=== PATIENT | male | born 1950 | race Caucasian/White ===

== ENCOUNTER 2023-12-29 05:36 | Inpatient (IN) | payer OTHER ==
[2023-12-29 06:12] LABS: #Eosinphils 0.2 10x3/uL (0.0-0.5); #Monocytes 1.6 10x3/uL (0.0-1.1); %Basophils 0.3 % (0.0-2.0); %Eosinophils 1.9 % (0.0-6.0); %Lymphocytes 13.2 % (18.0-47.0); %Monocytes 14.2 % (0.0-10.0); %Neutrophils 69.8 % (40.0-75.0); Hematocrit 40.3 % (38.8-50.0); Hemoglobin 14.1 g/dL (13.5-17.5); Mean Corpuscular Hemoglobin 30.4 pg (27.0-33.0); Mean Corpuscular Volume 86.9 fl (81.2-95.1); Mean Platelet Volume 11.4 fl (7.4-10.4); Platelet Count 237 10x3/uL (150-450); RBC Distribution Width 12.8 % (11.5-14.5); Red Blood Cell (RBC) Count 4.64 10x6/uL (4.32-5.72); White Blood Cell (WBC) Count 11.4 10x3/uL (3.5-10.5)
[2023-12-29 06:29] LABS: ALT (SGPT) 17 U/L (8-55); AST (SGOT) 24 U/L (5-34); Alkaline Phosphatase 68 U/L (40-110); Anion Gap 14 mmol/L (10-20); BUN (Urea Nitrogen) 7 mg/dL (8.4-25.7); Bilirubin, Total 0.8 mg/dL (0.2-1.2); Calc. Creatinine Clearance 0 mL/min (70-130); Calcium 8.4 mg/dL (7.8-10.44); Carbon Dioxide 22 mmol/L (23-31); Chloride 92 mmol/L (98-107); Estimated GFR 99; Globulin 2.4 g/dL (2.4-3.5); Glucose 91 mg/dL (83-110); Magnesium 1.8 mg/dL (1.6-2.6); Potassium 3.5 mmol/L (3.5-5.1); Protein, Total 6.4 g/dL (5.8-8.1); Sodium 124 mmol/L (136-145)
[2023-12-29 06:36] LABS: Influenza A by NAA Not Detected (NotDetected); Influenza B by NAA Not Detected (NotDetected); SARS-CoV-2 NAA Rapid Test Not Detected (NotDetected)
[2023-12-29 06:40] LABS: Troponin I Less than 0.010 ng/mL (< 0.028)
[2023-12-29] MEDS ORDERED: Azithromycin 500 MG VIAL ONE (08:18)
[2023-12-29] MEDS ORDERED: cefTRIAXone (ROCEPHIN) 2 GM VIAL ONE (08:18)
[2023-12-29] MEDS ORDERED: Acetaminophen 325 MG TAB PO PRN (09:33)
[2023-12-29] MEDS ORDERED: Ondansetron ODT 4 MG TAB PO PRN (09:33)
[2023-12-29] MEDS ORDERED: Ondansetron PF 4 MG/2 ML Vial IVP PRN (09:33)
[2023-12-29 10:26] LABS: Troponin I 0.011 ng/mL (< 0.028)
[2023-12-29] MEDS ORDERED: GenTeal Tears Severe Dry Eye GEL 10 GM EA EYE PRN (12:09)
[2023-12-29 12:59] VITALS: BMI 26.6
[2023-12-29 13:27] LABS: Lactic Acid 1.3 mmol/L (0.5-2.2)
[2023-12-29 13:36] LABS: Troponin I Less than 0.010 ng/mL (< 0.028)
[2023-12-29] MEDS: Enoxaparin 40 MG (0.4 mL) SYRINGE SC SCH (13:41)
[2023-12-29] MEDS: Sodium Chloride 0.9% 1,000 ML IV SCH (13:41)
[2023-12-29 15:41] LABS: Anion Gap 13 mmol/L (10-20); BUN (Urea Nitrogen) 5 mg/dL (8.4-25.7); Calc. Creatinine Clearance 105 mL/min (70-130); Calcium 8.3 mg/dL (7.8-10.44); Carbon Dioxide 22 mmol/L (23-31); Chloride 94 mmol/L (98-107); Estimated GFR 100; Glucose 96 mg/dL (83-110); Potassium 3.3 mmol/L (3.5-5.1); Sodium 126 mmol/L (136-145)
[2023-12-29 19:26] LABS: Anion Gap 14 mmol/L (10-20); BUN (Urea Nitrogen) 5 mg/dL (8.4-25.7); Calc. Creatinine Clearance 109 mL/min (70-130); Carbon Dioxide 23 mmol/L (23-31); Chloride 93 mmol/L (98-107); Estimated GFR 101; Glucose 97 mg/dL (83-110); Potassium 3.5 mmol/L (3.5-5.1); Sodium 126 mmol/L (136-145)
[2023-12-29] MEDS: Carvedilol 6.25 MG TAB PO SCH (21:00)
[2023-12-30 05:41] LABS: #Eosinphils 0.1 10x3/uL (0.0-0.5); #Monocytes 1.4 10x3/uL (0.0-1.1); #Neutrophils 7.8 10x3/uL (1.5-8.4); %Basophils 0.3 % (0.0-2.0); %Eosinophils 1.1 % (0.0-6.0); %Lymphocytes 12.5 % (18.0-47.0); %Monocytes 13.1 % (0.0-10.0); %Neutrophils 72.5 % (40.0-75.0); Hematocrit 39.8 % (38.8-50.0); Hemoglobin 14.6 g/dL (13.5-17.5); Mean Corpuscular HGB CONC 36.7 g/dL (32.0-36.0); Mean Corpuscular Hemoglobin 31.7 pg (27.0-33.0); Mean Corpuscular Volume 86.3 fl (81.2-95.1); Platelet Count 215 10x3/uL (150-450); RBC Distribution Width 12.9 % (11.5-14.5); Red Blood Cell (RBC) Count 4.61 10x6/uL (4.32-5.72); White Blood Cell (WBC) Count 10.8 10x3/uL (3.5-10.5)
[2023-12-30 05:55] LABS: Anion Gap 15 mmol/L (10-20); BUN (Urea Nitrogen) 6 mg/dL (8.4-25.7); Calc. Creatinine Clearance 114 mL/min (70-130); Calcium 7.9 mg/dL (7.8-10.44); Carbon Dioxide 18 mmol/L (23-31); Cardiac Risk 2.5 (Less than 4.5); Chloride 95 mmol/L (98-107); Cholesterol 68 mg/dl (< 200 Desired); Estimated GFR 103; Glucose 96 mg/dL (83-110); HDL Cholesterol 27 mg/dL (>60 Neg Risk); LDL Cholesterol, Calculated 32 mg/dL; Potassium 3.1 mmol/L (3.5-5.1); Sodium 125 mmol/L (136-145); Triglycerides 46 mg/dL (Less than 150)
[2023-12-30] MEDS: Calcium Carbonate 600 MG + Vit D TAB PO SCH (09:10)
[2023-12-30] MEDS: Aspirin Chewable 81 MG TAB PO SCH (09:10)
[2023-12-30] MEDS: Atorvastatin Calcium 40 MG TAB PO SCH (09:10)
[2023-12-30] MEDS: Potassium Chloride 20 MEQ TAB PO SCH (09:10)
[2023-12-30] MEDS: Sodium Chloride 0.9% 1,000 ML IV SCH (09:11)
[2023-12-30] MEDS: cefTRIAXone\\ROCEPHIN 1 GM in Sodium Chloride 0.9% 100 ML IVPB SCH (09:11)
[2023-12-30] MEDS: Docusate 100 MG CAP PO SCH (09:11)
[2023-12-30] MEDS ORDERED: Iopamidol 300 61% 100 ML VIAL FS ONE (10:00)
[2023-12-30] MEDS: Azithromycin 500 MG in Sodium Chloride 0.9% 250 ML 250 ML IVPB SCH (11:38)
[2023-12-30] MEDS ORDERED: Ipratropium/Albuterol 3 ML NEB NEB SCH (18:30)
[2023-12-30] MEDS: predniSONE 20 MG TAB PO SCH (19:00)
[2023-12-30] MEDS: Ipratropium/Albuterol 3 ML NEB NEB SCH (20:20)
[2023-12-31 05:32] LABS: Anion Gap 13 mmol/L (10-20); BUN (Urea Nitrogen) 9 mg/dL (8.4-25.7); Calc. Creatinine Clearance 114 mL/min (70-130); Calcium 7.9 mg/dL (7.8-10.44); Carbon Dioxide 17 mmol/L (23-31); Chloride 97 mmol/L (98-107); Estimated GFR 103; Glucose 111 mg/dL (83-110); Potassium 4.1 mmol/L (3.5-5.1); Sodium 123 mmol/L (136-145)
[2023-12-31 05:37] LABS: #Monocytes 0.4 10x3/uL (0.0-1.1); #Neutrophils 8.8 10x3/uL (1.5-8.4); %Basophils 0.2 % (0.0-2.0); %Lymphocytes 7.1 % (18.0-47.0); %Monocytes 3.9 % (0.0-10.0); %Neutrophils 88.3 % (40.0-75.0); Hematocrit 41.1 % (38.8-50.0); Hemoglobin 14.4 g/dL (13.5-17.5); Mean Corpuscular Hemoglobin 31.2 pg (27.0-33.0); Mean Corpuscular Volume 89.2 fl (81.2-95.1); Mean Platelet Volume 11.9 fl (7.4-10.4); Platelet Count 210 10x3/uL (150-450); RBC Distribution Width 12.9 % (11.5-14.5); Red Blood Cell (RBC) Count 4.61 10x6/uL (4.32-5.72)
[2023-12-31] MEDS: Sodium Chloride 0.9% 1,000 ML IV SCH (08:14)
[2023-12-31] MEDS: predniSONE 20 MG TAB PO SCH (08:17)
[2024-01-01 07:22] LABS: #Eosinphils 0.1 10x3/uL (0.0-0.5); #Monocytes 1.6 10x3/uL (0.0-1.1); #Neutrophils 10.8 10x3/uL (1.5-8.4); %Basophils 0.2 % (0.0-2.0); %Eosinophils 0.4 % (0.0-6.0); %Lymphocytes 11.9 % (18.0-47.0); %Monocytes 10.9 % (0.0-10.0); %Neutrophils 75.9 % (40.0-75.0); Hematocrit 39.8 % (38.8-50.0); Hemoglobin 13.9 g/dL (13.5-17.5); Mean Corpuscular HGB CONC 34.9 g/dL (32.0-36.0); Mean Corpuscular Hemoglobin 30.8 pg (27.0-33.0); Mean Corpuscular Volume 88.1 fl (81.2-95.1); Mean Platelet Volume 11.6 fl (7.4-10.4); Platelet Count 258 10x3/uL (150-450); Red Blood Cell (RBC) Count 4.52 10x6/uL (4.32-5.72); White Blood Cell (WBC) Count 14.3 10x3/uL (3.5-10.5)
[2024-01-01 07:29] LABS: Anion Gap 13 mmol/L (10-20); BUN (Urea Nitrogen) 14 mg/dL (8.4-25.7); Calc. Creatinine Clearance 110 mL/min (70-130); Calcium 8.4 mg/dL (7.8-10.44); Carbon Dioxide 19 mmol/L (23-31); Chloride 96 mmol/L (98-107); Estimated GFR 102; Glucose 105 mg/dL (83-110); Potassium 3.5 mmol/L (3.5-5.1); Sodium 124 mmol/L (136-145)
[2024-01-02 05:40] LABS: #Eosinphils 0.1 10x3/uL (0.0-0.5); #Monocytes 1.7 10x3/uL (0.0-1.1); %Basophils 0.2 % (0.0-2.0); %Eosinophils 0.5 % (0.0-6.0); %Lymphocytes 13.6 % (18.0-47.0); %Monocytes 12.3 % (0.0-10.0); %Neutrophils 72.8 % (40.0-75.0); Hemoglobin 14.3 g/dL (13.5-17.5); Mean Corpuscular HGB CONC 36.7 g/dL (32.0-36.0); Mean Corpuscular Hemoglobin 31.8 pg (27.0-33.0); Mean Corpuscular Volume 86.7 fl (81.2-95.1); Mean Platelet Volume 11.8 fl (7.4-10.4); Platelet Count 272 10x3/uL (150-450); White Blood Cell (WBC) Count 13.7 10x3/uL (3.5-10.5)
[2024-01-02 05:41] LABS: Anion Gap 13 mmol/L (10-20); BUN (Urea Nitrogen) 16 mg/dL (8.4-25.7); Calc. Creatinine Clearance 118 mL/min (70-130); Calcium 8.3 mg/dL (7.8-10.44); Carbon Dioxide 21 mmol/L (23-31); Chloride 94 mmol/L (98-107); Estimated GFR 104; Glucose 107 mg/dL (83-110); Potassium 3.5 mmol/L (3.5-5.1); Sodium 124 mmol/L (136-145)
[2024-01-02] MEDS: Tolvaptan 15 MG TAB PO SCH (11:07)
[2024-01-02 18:12] LABS: Sodium 124 mmol/L (136-145)
[2024-01-03 03:53] LABS: #Monocytes 2.2 10x3/uL (0.0-1.1); #Neutrophils 14.8 10x3/uL (1.5-8.4); %Basophils 0.2 % (0.0-2.0); %Lymphocytes 7.2 % (18.0-47.0); Hematocrit 44.9 % (38.8-50.0); Hemoglobin 15.5 g/dL (13.5-17.5); Mean Corpuscular HGB CONC 34.5 g/dL (32.0-36.0); Mean Corpuscular Hemoglobin 30.3 pg (27.0-33.0); Mean Corpuscular Volume 87.7 fl (81.2-95.1); Mean Platelet Volume 11.6 fl (7.4-10.4); Platelet Count 331 10x3/uL (150-450); RBC Distribution Width 13.1 % (11.5-14.5); Red Blood Cell (RBC) Count 5.12 10x6/uL (4.32-5.72); White Blood Cell (WBC) Count 18.5 10x3/uL (3.5-10.5)
[2024-01-03 04:34] LABS: Anion Gap 12 mmol/L (10-20); BUN (Urea Nitrogen) 13 mg/dL (8.4-25.7); Calc. Creatinine Clearance 97 mL/min (70-130); Calcium 9.6 mg/dL (7.8-10.44); Carbon Dioxide 22 mmol/L (23-31); Chloride 97 mmol/L (98-107); Estimated GFR 98; Glucose 120 mg/dL (83-110); Potassium 4.1 mmol/L (3.5-5.1); Sodium 127 mmol/L (136-145)
[2024-01-03] MEDS ORDERED: Cefepime 2 GM in Sodium Chloride 0.9% 100 ML IVPB SCH (09:00)
[2024-01-03] MEDS: VANCOMYCIN 1.25 GM/250 ML BAG 1.25 GM in Premix 1 BAG IVPB SCH (09:00)
[2024-01-03] MEDS ORDERED: Vancomycin 1 GM in Premix 1 BAG IVPB SCH (09:00)
[2024-01-03] MEDS: Sodium Chloride 0.9% 1,000 ML IV SCH (09:02)
[2024-01-03 14:45] LABS: Anion Gap 10 mmol/L (10-20); BUN (Urea Nitrogen) 14 mg/dL (8.4-25.7); Calc. Creatinine Clearance 92 mL/min (70-130); Calcium 9.3 mg/dL (7.8-10.44); Carbon Dioxide 25 mmol/L (23-31); Chloride 98 mmol/L (98-107); Estimated GFR 96; Glucose 148 mg/dL (83-110); Potassium 4.4 mmol/L (3.5-5.1); Sodium 129 mmol/L (136-145)
[2024-01-03] MEDS ORDERED: Vancomycin HCl 750 MG in Sodium Chloride 0.9% 250 ML 250 ML IVPB SCH (21:00)
[2024-01-04] MEDS: methylPREDNISolone Sod Succ/PF 125 MG/2 ML VIAL IVP SCH (01:23)
[2024-01-04] MEDS: Enoxaparin 40 MG (0.4 mL) SYRINGE SC SCH ×2 (01:24→21:15)
[2024-01-04] MEDS: guaiFENesin ER 600 MG TAB PO SCH ×2 (01:24→08:50)
[2024-01-04 03:52] LABS: #Eosinphils 0.1 10x3/uL (0.0-0.5); #Monocytes 1.6 10x3/uL (0.0-1.1); %Basophils 0.2 % (0.0-2.0); %Eosinophils 0.3 % (0.0-6.0); %Lymphocytes 7.2 % (18.0-47.0); %Monocytes 9.2 % (0.0-10.0); %Neutrophils 81.9 % (40.0-75.0); Hematocrit 42.7 % (38.8-50.0); Hemoglobin 14.7 g/dL (13.5-17.5); Mean Corpuscular HGB CONC 34.4 g/dL (32.0-36.0); Mean Corpuscular Hemoglobin 30.8 pg (27.0-33.0); Mean Corpuscular Volume 89.3 fl (81.2-95.1); Mean Platelet Volume 11.7 fl (7.4-10.4); Platelet Count 222 10x3/uL (150-450); RBC Distribution Width 13.4 % (11.5-14.5); Red Blood Cell (RBC) Count 4.78 10x6/uL (4.32-5.72); White Blood Cell (WBC) Count 17.1 10x3/uL (3.5-10.5)
[2024-01-04 04:14] LABS: Platelet Adequacy Comment Appears Adequate; RBC Morph Comment Within Normal Limits
[2024-01-04 04:17] LABS: Anion Gap 12 mmol/L (10-20); BUN (Urea Nitrogen) 15 mg/dL (8.4-25.7); Calc. Creatinine Clearance 98 mL/min (70-130); Calcium 8.7 mg/dL (7.8-10.44); Carbon Dioxide 21 mmol/L (23-31); Chloride 98 mmol/L (98-107); Estimated GFR 98; Glucose 106 mg/dL (83-110); Potassium 4.2 mmol/L (3.5-5.1); Sodium 127 mmol/L (136-145)
[2024-01-04] MEDS: predniSONE 20 MG TAB PO SCH (08:49)
[2024-01-04] MEDS: cefTRIAXone\\ROCEPHIN 1 GM in Sodium Chloride 0.9% 100 ML IVPB SCH (08:55)
[2024-01-04] MEDS: Mometasone/Formoterol 200/5 60 PUFF INH SCH (09:51)
[2024-01-04] MEDS: Tolvaptan 15 MG TAB PO SCH (14:09)
[2024-01-04 20:20] LABS: Potassium 3.8 mmol/L (3.5-5.1); Sodium 131 mmol/L (136-145)
[2024-01-05 03:55] LABS: #Basophils 0.1 10x3/uL (0.0-0.2); #Monocytes 2.1 10x3/uL (0.0-1.1); #Neutrophils 15.4 10x3/uL (1.5-8.4); %Basophils 0.3 % (0.0-2.0); %Eosinophils 0.1 % (0.0-6.0); %Lymphocytes 9.2 % (18.0-47.0); %Monocytes 10.7 % (0.0-10.0); %Neutrophils 78.5 % (40.0-75.0); Hematocrit 41.8 % (38.8-50.0); Hemoglobin 14.7 g/dL (13.5-17.5); Mean Corpuscular HGB CONC 35.2 g/dL (32.0-36.0); Mean Corpuscular Hemoglobin 31.1 pg (27.0-33.0); Mean Corpuscular Volume 88.4 fl (81.2-95.1); Mean Platelet Volume 11.4 fl (7.4-10.4); Platelet Count 316 10x3/uL (150-450); RBC Distribution Width 13.2 % (11.5-14.5); Red Blood Cell (RBC) Count 4.73 10x6/uL (4.32-5.72); White Blood Cell (WBC) Count 19.6 10x3/uL (3.5-10.5)
[2024-01-05 04:13] LABS: Anion Gap 12 mmol/L (10-20); BUN (Urea Nitrogen) 17 mg/dL (8.4-25.7); Calc. Creatinine Clearance 95 mL/min (70-130); Calcium 8.6 mg/dL (7.8-10.44); Carbon Dioxide 23 mmol/L (23-31); Chloride 100 mmol/L (98-107); Estimated GFR 97; Glucose 104 mg/dL (83-110); Potassium 3.5 mmol/L (3.5-5.1); Sodium 131 mmol/L (136-145)
[2024-01-05] MEDS ORDERED: Benzocaine/Menthol 1 LOZ LOZ PO PRN (23:02)
[2024-01-06] MEDS: Furosemide 40 MG (4 mL) VIAL SLOW IVP SCH (00:53)
[2024-01-06] MEDS: NOREPINEPHRINE 8 MG/250 ML-D5W 250 ML IVPB SCH (03:22)
[2024-01-06 03:38] LABS: Actual Bicarbonate (HCO3a) 27.9 mEq/L (22-28); Analyzer IN Cardio CS ICU; Base Excess (BEa) 0.5 mEq/L (-2.0 to +3.0); CO2 Tension 55.6 mmHg (35.0-45.0); Calcium, Ionized (arterial) 1.17 mmol/L (1.12-1.30); Carboxyhemoglobin (COHb) 0.9 gm% (0.0-3.0); Hematocrit-ABG 46 % (42.0-52.0); Hemoglobin (Hb) 15.7 g/dL (14.0-18.0); O2 Tension (PaO2), arterial 59.3 mmHg (> 70.0); Puncture Site RRA; pH, Arterial 7.318 (7.35-7.45)
[2024-01-06 03:39] LABS: #Basophils 0.1 10x3/uL (0.0-0.2); #Monocytes 1.7 10x3/uL (0.0-1.1); #Neutrophils 19.4 10x3/uL (1.5-8.4); %Basophils 0.3 % (0.0-2.0); %Lymphocytes 3.5 % (18.0-47.0); %Monocytes 7.7 % (0.0-10.0); %Neutrophils 87.1 % (40.0-75.0); Hematocrit 44.1 % (38.8-50.0); Hemoglobin 15.3 g/dL (13.5-17.5); Mean Corpuscular HGB CONC 34.7 g/dL (32.0-36.0); Mean Corpuscular Hemoglobin 31.6 pg (27.0-33.0); Mean Corpuscular Volume 91.1 fl (81.2-95.1); Mean Platelet Volume 11.2 fl (7.4-10.4); Platelet Count 333 10x3/uL (150-450); RBC Distribution Width 13.6 % (11.5-14.5); Red Blood Cell (RBC) Count 4.84 10x6/uL (4.32-5.72); White Blood Cell (WBC) Count 22.3 10x3/uL (3.5-10.5)
[2024-01-06 03:54] LABS: Anion Gap 14 mmol/L (10-20); BUN (Urea Nitrogen) 21 mg/dL (8.4-25.7); Calc. Creatinine Clearance 88 mL/min (70-130); Calcium 8.5 mg/dL (7.8-10.44); Carbon Dioxide 24 mmol/L (23-31); Chloride 100 mmol/L (98-107); Estimated GFR 95; Glucose 151 mg/dL (83-110); Potassium 4.3 mmol/L (3.5-5.1); Sodium 134 mmol/L (136-145)
[2024-01-06] MEDS: NOREPINEPHRINE 8 MG/250 ML-D5W 250 ML ONE (04:02)
[2024-01-06] MEDS ORDERED: Vancomycin 1.5 GM in Sodium Chloride 0.9% 250 ML 300 ML IVPB SCH (09:00)
[2024-01-06] MEDS: Cefepime 2 GM in Sodium Chloride 0.9% 100 ML IVPB SCH (09:07)
[2024-01-06] MEDS: Lactated Ringer's 1,000 ML IV SCH (09:07)
[2024-01-06] MEDS: VANCOMYCIN 1.25 GM/250 ML BAG 1.25 GM in Premix 1 BAG IVPB SCH (09:07)
[2024-01-06] MEDS ORDERED: Iopamidol 370 76% 100 ML VIAL ONE (14:18)
[2024-01-06] MEDS: methylPREDNISolone Sod Succ 40 MG VIAL IVP SCH (18:16)
[2024-01-06] MEDS: methylPREDNISolone Sod Succ/PF 125 MG/2 ML VIAL IVP SCH (18:41)
[2024-01-06] MEDS: Vancomycin 1 GM in Sodium Chloride 0.9% 250 ML 250 ML IVPB SCH (21:15)
[2024-01-07 04:34] LABS: Hematocrit 39.9 % (38.8-50.0); Hemoglobin 13.6 g/dL (13.5-17.5); Mean Corpuscular HGB CONC 34.1 g/dL (32.0-36.0); Mean Corpuscular Volume 90.9 fl (81.2-95.1); Mean Platelet Volume 11.1 fl (7.4-10.4); Platelet Count 257 10x3/uL (150-450); RBC Distribution Width 13.6 % (11.5-14.5); Red Blood Cell (RBC) Count 4.39 10x6/uL (4.32-5.72); White Blood Cell (WBC) Count 30.5 10x3/uL (3.5-10.5)
[2024-01-07 04:35] LABS: MDiff Complete? YES
[2024-01-07 04:47] LABS: Anion Gap 13 mmol/L (10-20); BUN (Urea Nitrogen) 18 mg/dL (8.4-25.7); Calc. Creatinine Clearance 97 mL/min (70-130); Calcium 8.3 mg/dL (7.8-10.44); Carbon Dioxide 25 mmol/L (23-31); Chloride 102 mmol/L (98-107); Estimated GFR 98; Glucose 121 mg/dL (83-110); Sodium 136 mmol/L (136-145)
[2024-01-07 06:35] LABS: Lymphocytes 5 % (21-51); Neutrophil 95 % (42-75)
[2024-01-07 06:37] LABS: Microcytosis SLIGHT = 6-15 cells (100X) (0-5/hpf); Platelet Adequacy Comment Appears Adequate
[2024-01-07 20:16] LABS: Vancomycin, Trough 9.9 ug/mL
[2024-01-07] MEDS: Vancomycin 1.5 GRAM/300 ML BAG 1.5 GM in Premix 1 BAG IVPB SCH (22:56)
[2024-01-08 03:14] LABS: #Neutrophils 28.1 10x3/uL (1.5-8.4); %Basophils 0.1 % (0.0-2.0); %Lymphocytes 2.4 % (18.0-47.0); %Monocytes 3.3 % (0.0-10.0); %Neutrophils 93.1 % (40.0-75.0); Hemoglobin 12.7 g/dL (13.5-17.5); Mean Corpuscular HGB CONC 34.3 g/dL (32.0-36.0); Mean Corpuscular Hemoglobin 31.6 pg (27.0-33.0); Mean Platelet Volume 11.7 fl (7.4-10.4); Platelet Count 237 10x3/uL (150-450); RBC Distribution Width 13.7 % (11.5-14.5); Red Blood Cell (RBC) Count 4.02 10x6/uL (4.32-5.72); White Blood Cell (WBC) Count 30.2 10x3/uL (3.5-10.5)
[2024-01-08 03:26] LABS: Anion Gap 12 mmol/L (10-20); BUN (Urea Nitrogen) 24 mg/dL (8.4-25.7); Calc. Creatinine Clearance 107 mL/min (70-130); Calcium 8.4 mg/dL (7.8-10.44); Carbon Dioxide 27 mmol/L (23-31); Chloride 103 mmol/L (98-107); Estimated GFR 101; Glucose 149 mg/dL (83-110); Potassium 3.9 mmol/L (3.5-5.1); Sodium 138 mmol/L (136-145)
[2024-01-09] MEDS: Ipratropium/Albuterol 3 ML NEB NEB PRN (04:20)
[2024-01-09 04:57] LABS: #Monocytes 0.7 10x3/uL (0.0-1.1); #Neutrophils 21.5 10x3/uL (1.5-8.4); %Basophils 0.2 % (0.0-2.0); %Lymphocytes 3.2 % (18.0-47.0); %Monocytes 2.9 % (0.0-10.0); %Neutrophils 91.9 % (40.0-75.0); Hematocrit 41.6 % (38.8-50.0); Hemoglobin 13.6 g/dL (13.5-17.5); Mean Corpuscular HGB CONC 32.7 g/dL (32.0-36.0); Mean Corpuscular Hemoglobin 30.4 pg (27.0-33.0); Mean Corpuscular Volume 92.9 fl (81.2-95.1); Mean Platelet Volume 11.3 fl (7.4-10.4); Platelet Count 272 10x3/uL (150-450); Red Blood Cell (RBC) Count 4.48 10x6/uL (4.32-5.72); White Blood Cell (WBC) Count 23.4 10x3/uL (3.5-10.5)
[2024-01-09 04:58] LABS: Anion Gap 12 mmol/L (10-20); BUN (Urea Nitrogen) 23 mg/dL (8.4-25.7); Calc. Creatinine Clearance 114 mL/min (70-130); Calcium 8.5 mg/dL (7.8-10.44); Carbon Dioxide 27 mmol/L (23-31); Chloride 105 mmol/L (98-107); Estimated GFR 103; Glucose 143 mg/dL (83-110); Potassium 3.9 mmol/L (3.5-5.1); Sodium 140 mmol/L (136-145)
[2024-01-09 09:20] LABS: Vancomycin, Trough 21.3 ug/mL
[2024-01-09] MEDS: VANCOMYCIN 1.25 GM/250 ML BAG 1.25 GM in Premix 1 BAG IVPB SCH (14:35)
[2024-01-09] MEDS: Tamsulosin HCl 0.4 MG CAP PO SCH (20:41)
[2024-01-10] MEDS: methylPREDNISolone Sod Succ 40 MG VIAL IVP SCH (09:31)
[2024-01-10 09:35] LABS: #Basophils 0.1 10x3/uL (0.0-0.2); #Monocytes 1.3 10x3/uL (0.0-1.1); #Neutrophils 14.4 10x3/uL (1.5-8.4); %Basophils 0.3 % (0.0-2.0); %Lymphocytes 8.9 % (18.0-47.0); %Monocytes 7.1 % (0.0-10.0); %Neutrophils 82.2 % (40.0-75.0); Hematocrit 39.4 % (38.8-50.0); Hemoglobin 13.3 g/dL (13.5-17.5); Mean Corpuscular HGB CONC 33.8 g/dL (32.0-36.0); Mean Corpuscular Hemoglobin 31.1 pg (27.0-33.0); Mean Corpuscular Volume 92.1 fl (81.2-95.1); Mean Platelet Volume 11.4 fl (7.4-10.4); Platelet Count 286 10x3/uL (150-450); RBC Distribution Width 13.9 % (11.5-14.5); Red Blood Cell (RBC) Count 4.28 10x6/uL (4.32-5.72); White Blood Cell (WBC) Count 17.6 10x3/uL (3.5-10.5)
[2024-01-10 10:03] LABS: Anion Gap 9 mmol/L (10-20); BUN (Urea Nitrogen) 22 mg/dL (8.4-25.7); Calc. Creatinine Clearance 105 mL/min (70-130); Calcium 8.3 mg/dL (7.8-10.44); Carbon Dioxide 32 mmol/L (23-31); Chloride 103 mmol/L (98-107); Estimated GFR 100; Glucose 102 mg/dL (83-110); Sodium 140 mmol/L (136-145)
[2024-01-10 13:52] LABS: Vancomycin, Trough 17.3 ug/mL
[2024-01-10] MEDS: Cefdinir 300 MG CAP PO SCH (20:08)
[2024-01-11] MEDS: Milk Of Magnesia 30 ML UDCUP PO SCH ×2 (09:29→21:23)
[2024-01-11 09:31] LABS: #Basophils 0.1 10x3/uL (0.0-0.2); #Monocytes 1.5 10x3/uL (0.0-1.1); #Neutrophils 15.5 10x3/uL (1.5-8.4); %Basophils 0.4 % (0.0-2.0); %Eosinophils 0.1 % (0.0-6.0); %Lymphocytes 8.6 % (18.0-47.0); %Monocytes 7.8 % (0.0-10.0); %Neutrophils 81.2 % (40.0-75.0); Hematocrit 42.2 % (38.8-50.0); Mean Corpuscular HGB CONC 33.2 g/dL (32.0-36.0); Mean Corpuscular Hemoglobin 30.7 pg (27.0-33.0); Mean Corpuscular Volume 92.5 fl (81.2-95.1); Mean Platelet Volume 10.5 fl (7.4-10.4); Platelet Count 278 10x3/uL (150-450); RBC Distribution Width 13.7 % (11.5-14.5); Red Blood Cell (RBC) Count 4.56 10x6/uL (4.32-5.72); White Blood Cell (WBC) Count 19.1 10x3/uL (3.5-10.5)
[2024-01-11 09:48] LABS: Anion Gap 12 mmol/L (10-20); BUN (Urea Nitrogen) 21 mg/dL (8.4-25.7); Calc. Creatinine Clearance 120 mL/min (70-130); Calcium 8.4 mg/dL (7.8-10.44); Carbon Dioxide 26 mmol/L (23-31); Chloride 102 mmol/L (98-107); Estimated GFR 104; Glucose 117 mg/dL (83-110); Potassium 3.6 mmol/L (3.5-5.1); Sodium 136 mmol/L (136-145)
[2024-01-11] MEDS ORDERED: Senokot 8.6 MG TAB PO PRN (13:37)
[2024-01-11] MEDS ORDERED: Magnesium Citrate 300 ML BOT PO PRN (18:30)
[2024-01-11] MEDS ORDERED: Milk Of Magnesia 30 ML UDCUP PO PRN (18:30)
[2024-01-12] MEDS: Milk Of Magnesia 30 ML UDCUP PO SCH (10:16)
[2024-01-12] MEDS: Bisacodyl 10 MG SUPP PR PRN (15:23)
[2024-01-12] MEDS: Senokot 8.6 MG TAB PO PRN (17:18)
[2024-01-12] MEDS ORDERED: Bisacodyl 10 MG SUPP PR SCH (17:30)
[2024-01-12] MEDS ORDERED: Lactulose 20 GM (30 mL) UDCUP PO PRN (17:59)
[2024-01-12] MEDS: Bisacodyl 10 MG SUPP PR SCH (18:17)
[2024-01-12] MEDS ORDERED: Magnesium Citrate 300 ML BOT PO PRN (18:27)
[2024-01-12] MEDS ORDERED: Milk Of Magnesia 30 ML UDCUP PO PRN (18:27)
[2024-01-13] MEDS: Lactulose 20 GM (30 mL) UDCUP PO PRN (16:04)
[2024-01-13] MEDS: Bisacodyl 10 MG SUPP PR PRN (16:04)
[2024-01-14] MEDS: predniSONE 20 MG TAB PO SCH (08:34)
[2024-01-14 08:47] VITALS: TEMP 97.9
[2024-01-14 13:12] VITALS: BP 123/70
== END 2024-01-14 11:35 | DRG 871 ==
LOC: CSHERS 05:36 → EEVIPCON 09:40 → OBSVTOIN 09:40 → CSHERHOLD 09:40 → CSHTELE 12:17 → CSHICU 01-06 03:23 → CSHTELE 01-08 17:50
PROVIDERS: ADMIT Internal Medicine; ATTEND Internal Medicine
PROC: 3E033XZ Introduction of Vasopressor into Peripheral Vein, Percutaneous Approach (ICD-10-PCS; principal; 2024-01-06)
PROC: 5A09357 Assistance with Respiratory Ventilation, Less than 24 Consecutive Hours, Continuous Positive Airway Pressure (ICD-10-PCS; 2024-01-06)
DX: A41.9 Sepsis, unspecified organism (principal); J96.01 Acute respiratory failure with hypoxia; J96.02 Acute respiratory failure with hypercapnia; R57.1 Hypovolemic shock; R65.21 Severe sepsis with septic shock; C34.91 Malignant neoplasm of unspecified part of right bronchus or lung; E87.20 Acidosis, unspecified; J44.1 Chronic obstructive pulmonary disease with (acute) exacerbation; E22.2 Syndrome of inappropriate secretion of antidiuretic hormone; G93.40 Encephalopathy, unspecified; R33.9 Retention of urine, unspecified; Z66 Do not resuscitate; K21.9 Gastro-esophageal reflux disease without esophagitis; I10 Essential (primary) hypertension; E78.5 Hyperlipidemia, unspecified; R59.1 Generalized enlarged lymph nodes; R26.9 Unspecified abnormalities of gait and mobility; K59.00 Constipation, unspecified; E87.8 Other disorders of electrolyte and fluid balance, not elsewhere classified; Z79.82 Long term (current) use of aspirin; Z87.891 Personal history of nicotine dependence; Z79.899 Other long term (current) drug therapy; Z91.81 History of falling
CPT/HCPCS: 36415; 36416; 36600; 70450; 71045; 71260; 71275; 80048; 80053; 80061; 80202; 82805; 83605; 83735; 83880; 83930; 83935; 84300; 84443; 84484; 85025; 85379; 87040; 93005; 93306; 94640; 94660; 94760; 94762; 96372; 96374; 96375; 96376; G0378; J0456; J0692; J0696; J1650; J1940; J2920; J2930; J3370; J3490; J7050; J7120; J7512; J7620; Q9967